=== PATIENT | male | born 1945 | race Caucasian/White ===

== ENCOUNTER → 2023-06-07 | Outpatient (CLI) | payer MEDICARE ==
[2023-06-07 11:59] LABS: African American GFR (CKD) 65 (>60 ml/min/1.73 sqM); Blood Urea Nitrogen 25 mg/dL (9-20); Non-African American GFR(CKD) 56 (>60 ml/min/1.73 sqM)
--- NOTE | 2023-06-07 12:35 | CT ---
EXAMINATION TYPE: CT chest w con DATE OF EXAM: 06/07/2023 COMPARISON: Chest x-ray 04/21/2023 HISTORY: lung nodules CT DLP: 349.8 mGycm Automated exposure control for dose reduction was used. TECHNIQUE: CT scan of the chest is performed with IV Contrast, patient injected with 80 mL of Isovue 300. MIP I mages are created on CT scanner and reviewed. 3D reconstructed images are created on an independent w orkstation and reviewed. FINDINGS: LUNGS: The lungs are grossly clear, there is no concerning parenchymal mass or nodule identified. T here is no pleural effusion or pneumothorax seen. The tracheobronchial tree is patent. Mild to moder ate emphysematous changes with a component of both centrilobular and bullous. Subsegmental areas of s carring or atelectasis bilaterally. Mild central and basilar bronchiectasis with mild peribronchial w all thickening likely on the basis of chronic bronchitis. MEDIASTINUM: A borderline right hilar lymphadenopathy measuring short axis of 1.1 cm. Trace of perica rdial fluid. Mild atherosclerotic change aorta. Heart size is normal but there is dense coronary destiny ry calcification. OTHER: Small hiatal hernia. Hypertrophic and degenerative changes of the spine. Right kidney somewha t atrophic. Liver slightly reduced in attenuation likely representing a component of mild hepatic ashley atosis. IMPRESSION: 1. Diffuse emphysematous changes with no evidence of suspicious pulmonary mass or acute pneumonia. 2. Borderline right hilar adenopathy possibly reactive correlate clinically. 3. Coronary artery dense calcification.
== END | disposition home or self-care (01) ==
LOC: RADCTMAIN 11:19
PROVIDERS: ATTEND Internal Medicine Critical Care Medicine
DX: J43.9 Emphysema, unspecified (principal); I25.10 Atherosclerotic heart disease of native coronary artery without angina pectoris; R91.1 Solitary pulmonary nodule; R91.8 Other nonspecific abnormal finding of lung field; R59.0 Localized enlarged lymph nodes
CPT/HCPCS: 82565; 84520; 71260; 36415; Q9967